=== PATIENT | male | born 1955 | race Caucasian/White ===

== ENCOUNTER → 2017-02-09 | Outpatient (CLI) | payer MEDICARE ==
[~2017-02-09] MED LIST: ACET500T33 PO; CALC600T PO; CHOL100013 PO; COLE1TAB2 PO; CONTRAST GIVEN MC PRN; HYDR-2680 PO; IOHEXOL 350 MG/ML 100 ML VIAL. IV ONE; OMEP40CA2 PO
--- NOTE | 2017-02-09 12:24 | CARD ---
APPROVED REPORT EXAM: Two-dimensional and M-mode echocardiogram with Doppler and color Doppler. Other Information Quality : Average Rhythm : NSR INDICATION Thoracic aortic aneurysm 2D DIMENSIONS RVDd3.2 (2.9-3.5cm)Left Atrium(2D)2.4 (1.6-4.0cm) IVSd0.8 (0.7-1.1cm)Aortic Root(2D)3.4 (2.0-3.7cm) LVDd4.2 (3.9-5.9cm)LVOT Diameter2.0 (1.8-2.4cm) PWd0.8 (0.7-1.1cm)LVDs2.8 (2.5-4.0cm) FS (%) 34.2 %SV49.6 ml LVEF(%)63.7 (>50%) Aortic Valve AoV Peak Filemon.83.1cm/sAoV VTI14.9cm AO Peak GR.2.8mmHgLVOT Peak Fileomn.73.5cm/s LVOT VTI 14.97cmAO Mean GR.1mmHg YOUNG (VMAX)2.47up5BMA (VTI)3.15cm2 Mitral Valve MV E Zwnkqbik30.0cm/sMV DECEL [id number] MV A Iurnyyse30.9cm/sMV E Mean Gr.1mmHg MV DSO51sbW/A Ratio0.9 MV A Sbciiwmj779ncHDG (PHT)2.73cm2 TDI E/Lateral E'4.7E/Medial E'6.0 Tricuspid Valve TR P. Thlvebrf981zl/sRAP WWBXQOQH6kbPw TR Peak Gr.88jqHiOFVX66vhOo Pulmonary Vein S1 Knzakydt96.0cm/sD2 Xtqoacog21.9cm/s LEFT VENTRICLE The left ventricle is normal size. There is normal left ventricular wall thickness. Left ventricle sy stolic function is low normal. The Ejection Fraction is 50-55%. There is normal LV segmental wall mot ion. The left ventricular diastolic function and filling is normal for age. There is no ventricular s eptal defect visualized. RIGHT VENTRICLE The right ventricle is normal size. The right ventricular systolic function is normal. ATRIA The left atrium size is normal. The right atrium size is normal. The interatrial septum is intact wit h no evidence for an atrial septal defect or patent foramen ovale as noted on 2-D or Doppler imaging. AORTIC VALVE The aortic valve is normal in structure and function. The aortic valve is trileaflet. Doppler and Col or Flow revealed no significant aortic regurgitation. There is no significant aortic valvular stenosi s. MITRAL VALVE The mitral valve is normal in structure and function. There is no mitral valve stenosis. Doppler and Color Flow revealed trace mitral regurgitation. TRICUSPID VALVE The tricuspid valve is normal in structure and function. Doppler and Color Flow revealed mild tricusp id regurgitation. The PA pressure was estimated at 37 mmHg. There is no tricuspid valve stenosis. PULMONIC VALVE The pulmonic valve is not well visualized. Doppler and Color Flow revealed no pulmonic valvular regur gitation. There is no pulmonic valvular stenosis. GREAT VESSELS The aortic root is normal in size. The ascending aorta is normal in size. Normal pulmonary venous ronaldo w (Doppler). The IVC is normal in size and collapses >50% with inspiration. PERICARDIAL EFFUSION There is no evidence of significant pericardial effusion. Critical Notification Critical Value: No <Conclusion> Left ventricle systolic function is low normal. The Ejection Fraction is 50-55%. There is normal LV segmental wall motion. Doppler and Color Flow revealed mild tricuspid regurgitation. The PA pressure was estimated at 37 mmH g.
--- NOTE | 2017-02-09 12:34 | RAD ---
Indication thoracic aneurysm. Contrast imaging through the chest was performed. The images were obtained during the arterial phase. MIP images were generated and reviewed as well as volume rendered images. Approximately 75 cc of Omnipaque [address] imaging of the chest is available. No definite aneurysm is seen. The ascending thoracic aorta, throughout its course, has a diameter less than 4 cm. No acute finding is seen associated with the thoracic aorta. There is no significant hilar or mediastinal adenopathy. There is a calcified granuloma in the right upper lobe. There is some suggested slight reticulonodular prominence in the right upper lobe. Some of this may be chronic. Infectious etiology is not entirely excluded. Clinical correlation advised. A definite consolidated pneumonia is not seen. No dominant soft tissue mass is seen in either lung. Imaging through the upper abdomen is unremarkable IMPRESSION: No acute finding in the chest. The thoracic aorta, throughout its course, has a diameter under 4 cm. Suspect slight reticulonodular prominence in the right upper lobe. Clinical correlation advised PQRS Compliance Statement: One or more of the following individualized dose reduction techniques were utilized for this examination: 1. Automated exposure control 2. Adjustment of the mA and/or kV according to patient size 3. Use of iterative reconstruction technique
== END | disposition home or self-care (01) ==
LOC: CT 10:29
PROVIDERS: ATTEND Internal Medicine Cardiovascular Disease
DX: I71.2 Thoracic aortic aneurysm, without rupture (principal); J84.10 Pulmonary fibrosis, unspecified; I07.1 Rheumatic tricuspid insufficiency
CPT/HCPCS: 71260; 93306

== ENCOUNTER → 2018-02-14 | Outpatient (CLI) | payer MEDICARE ==
[~2018-02-14] MED LIST changes: -CONTRAST GIVEN MC PRN; +CONTRAST GIVEN. MC PRN; +IOHEXOL 300 MG/ML 100ML VIAL. IV ONE; -IOHEXOL 350 MG/ML 100 ML VIAL. IV ONE
--- NOTE | 2018-02-14 10:06 | RAD ---
CTA OF THE CHEST WITH AND WITHOUT CONTRAST Clinical indications: Thoracic aortic aneurysm. Follow-up study. Technique: Noncontrast axial localizer was performed. After IV infusion of 90 cc of Omnipaque 300, helical CT scanning of the chest was performed using the CT thoracic aortic protocol. Coronal and sagittal MIP reconstructions were generated. PQRS compliance Statement One or more of the following individualized dose reduction techniques were utilized for this study: 1. Automated exposure control 2. Adjustment of the mA and/or kV according to patient size 3. Use of iterative reconstruction technique Comparison: February 09, 2017. Findings: There is ectasia of the ascending aorta measuring 4.0 cm in greatest dimension. This is unchanged. No intimal flap or dissection is seen. The heart size is normal and no pericardial effusion is seen. No enlarging thoracic lymphadenopathy is evident. No pleural effusion or pneumothorax is seen. Calcified granuloma of the anterior segment of the right upper lobe is again evident. No new lung nodule is evident. No new lung infiltrate is seen. The proximal bronchial tree is patent. No osteolytic process is evident. No adrenal mass is seen. IMPRESSION: Stable ectasia of the ascending aorta. No dissection is evident. No acute lung infiltrate. Electronically signed by: Spencer Alexander MD (02/14/2018 10:02 AM) [facility]
== END | disposition home or self-care (01) ==
LOC: CT 09:09
PROVIDERS: ATTEND Internal Medicine Cardiovascular Disease
DX: I77.810 Thoracic aortic ectasia (principal)
CPT/HCPCS: 71275; Q9967

== ENCOUNTER → 2019-03-08 | Outpatient (CLI) | payer MEDICARE ==
[~2019-03-08] MED LIST changes: -CONTRAST GIVEN. MC PRN; -IOHEXOL 300 MG/ML 100ML VIAL. IV ONE; +IOHEXOL 350 MG/ML 100 ML VIAL. IV ONE
--- NOTE | 2019-03-08 09:04 | RAD ---
EXAM: CT angiogram chest CLINICAL HISTORY: THORACIC AORTIC ANEURYSM W/O RUPTURE COMPARISON: 02/14/18, 02/09/2017 TECHNIQUE: CT of the chest following the administration of intravenous contrast during the aortic arterial phase. Axial, coronal and sagittal reformatted images were generated including MIP images. ---PQRS compliance statement - One or more of the following individualized dose reduction techniques were utilized for this study: 1. Automated exposure control 2. Adjustment of the mA and/or kV according to patient size 3. Use of iterative reconstruction technique--- FINDINGS: CHEST: Heart is not enlarged. No pericardial effusion. Coronary artery calcifications are seen. At the level of the right pulmonary artery, the ascending aorta measures 3.9 cm, essentially stable, previously 4 cm. Remainder of the visualized thoracic aorta is normal in caliber. Bovine configuration of the aortic arch. A few mildly prominent mediastinal and hilar lymph nodes are seen, in general grossly stable. No axillary lymphadenopathy. Linear reticular opacities in the lower lobes likely scarring/atelectasis. A <4 mm left fissural lung nodule is stable. No suspicious lung nodule or mass is seen. Stable calcified granuloma in the right upper lobe. Visualized Upper abdomen: Unremarkable Bones: Stable IMPRESSION: Dilation of the ascending aorta, stable to 02/14/2018. Otherwise stable examination. Electronically signed by: Brett Quintana MD (03/08/2019 9:01 AM) [facility]
== END ==
LOC: CT 07:57
PROVIDERS: ATTEND Internal Medicine Cardiovascular Disease
DX: R91.1 Solitary pulmonary nodule (principal); I71.2 Thoracic aortic aneurysm, without rupture; J84.10 Pulmonary fibrosis, unspecified
CPT/HCPCS: 71275; Q9967

== ENCOUNTER → 2019-03-28 | Outpatient (CLI) | payer MEDICARE ==
[~2019-03-28] MED LIST changes: -IOHEXOL 350 MG/ML 100 ML VIAL. IV ONE
--- NOTE | 2019-03-28 12:52 | CARD ---
MR#: [id number] Date of Study: 03/28/2019 Ordering Physician: SILVINO CAGE, Referring Physician: SILVINO CAGE, Tech: Moni Plasencia APPROVED REPORT EXAM: Two-dimensional and M-mode echocardiogram with Doppler and color Doppler. Other Information Quality : AverageHR: 72bpm INDICATION Aorta aneurysm 2D DIMENSIONS RVDd3.1 (2.9-3.5cm)Left Atrium(2D)2.9 (1.6-4.0cm) IVSd1.1 (0.7-1.1cm)Aortic Root(2D)3.4 (2.0-3.7cm) LVDd4.4 (3.9-5.9cm)LVOT Diameter2.6 (1.8-2.4cm) PWd0.8 (0.7-1.1cm)LVDs3.1 (2.5-4.0cm) FS (%) 29.9 %SV49.6 ml LVEF(%)57.3 (>50%) Aortic Valve AoV Peak Filemon.111.6cm/sAoV VTI22.1cm AO Peak GR.5.0mmHgLVOT Peak Filemon.90.8cm/s AO Mean GR.3mmHgAVA (VMAX)4.37cm2 Mitral Valve MV E Tzkhvtok23.5cm/sMV DECEL SCVS103cu MV A Icecpnhn23.0cm/sE/A Ratio1.0 Pulmonary Valve PV Peak Bvpoqnxp92.4cm/s Tricuspid Valve TR P. Knozqsnh367cv/sRAP KQBYKOKY4ndVc TR Peak Gr.58wzIfOKRT65sxRi Pulmonary Vein S1 Gyjkifjq18.2cm/sD2 Hwleqbjz33.0cm/s PVa pkqavydh934ggsq LEFT VENTRICLE The left ventricle is normal size. There is mild concentric left ventricular hypertrophy. The left ve ntricular systolic function is normal. The Ejection Fraction is 55-60%. There is normal LV segmental wall motion. RIGHT VENTRICLE The right ventricle is normal size. There is normal right ventricular wall thickness. The right ventr icular systolic function is normal. ATRIA The left atrium size is normal. The right atrium size is normal. The interatrial septum is intact wit h no evidence for an atrial septal defect or patent foramen ovale as noted on 2-D or Doppler imaging. AORTIC VALVE The aortic valve is normal in structure and function. Doppler and Color Flow revealed no significant aortic regurgitation. There is no significant aortic valvular stenosis. MITRAL VALVE The mitral valve is normal in structure and function. There is no evidence of mitral valve prolapse. There is no mitral valve stenosis. Doppler and Color Flow revealed no mitral valve regurgitation note d. TRICUSPID VALVE The tricuspid valve is normal in structure and function. Doppler and Color Flow revealed trace tricus pid regurgitation with an estimated PAP of 25 mmHg. There is no tricuspid valve prolapse or vegetatio n. There is no tricuspid valve stenosis. PULMONIC VALVE The pulmonary valve is normal in structure and function. Doppler and Color Flow revealed no pulmonic valvular regurgitation. GREAT VESSELS The aortic root is normal in size. The IVC is normal in size and collapses >50% with inspiration. PERICARDIAL EFFUSION There is no evidence of significant pericardial effusion. Critical Notification Critical Value: No <Conclusion> The left ventricular systolic function is normal. The Ejection Fraction is 55-60%. There is normal LV segmental wall motion. Trace tricuspid regurgitation with an estimated PAP of 25 mmHg. There is no evidence of significant pericardial effusion. Signed by : Silvino Cage, Electronically Approved : 03/28/2019 12:51:22
== END | disposition home or self-care (01) ==
LOC: ECHO 08:58
PROVIDERS: ATTEND Internal Medicine Cardiovascular Disease
DX: I51.7 Cardiomegaly (principal); I72.1 Aneurysm of artery of upper extremity
CPT/HCPCS: 93306

== ENCOUNTER → 2019-09-21 | Outpatient (CLI) | payer MEDICARE ==
[~2019-09-21] MED LIST changes: +CONTRAST GIVEN. MC PRN; +IOHEXOL 350 MG/ML 100 ML VIAL. IV ONE
--- NOTE | 2019-09-21 11:41 | RAD ---
EXAM: CT Pulmonary Angiogram INDICATION: Shortness of air. Rule out P/E. TECHNIQUE: Multi-detector row images were acquired from the thoracic inlet through the upper abdomen with the use of IV contrast. Sagittal and coronal images were acquired from the transaxial data. MIP images of the pulmonary arteries were obtained. All CT scans performed at this facility utilize dose optimization techniques as appropriate to the exam, including the following: Automated exposure control and adjustment of the mA and/or KV according to patient size (this includes techniques or standardized protocols for targeted exams where dose is indication/reason for exam). IV CONTRAST: Administered COMPARISON: 02/14/2018 CT chest with IV contrast FINDINGS: PULMONARY ARTERIES: The pulmonary arteries are moderately enlarged but no filling defects are present to suggest pulmonary emboli. CARDIOVASCULAR: Unremarkable Aorta is normal caliber. MEDIASTINUM & MARIANA: Mild right hilar adenopathy with lymph node measuring 9 mm in short axis diameter on image 72 of axial series 3. LUNGS: Lungs show interval development of diffuse bilateral groundglass attenuation without confluent consolidation. Stable right upper lobe 9 mm hamartoma. PLEURAL SPACE: No pleural effusions or pneumothorax. OSSEOUS & SOFT TISSUE: Unremarkable ABDOMEN: The visualized portions of the upper abdomen are unremarkable. IMPRESSION: 1. No pulmonary emboli. 2. Diffuse groundglass attenuation in the lungs bilaterally, new from a year and a half ago. This could reflect atypical pneumonia in the appropriate clinical context. FOR INTERNAL CODING PURPOSES Critical result: Findings discussed with JORGE LUIS WONG at 09/21/2019 11:36 A M. RESULT CODE: (C) Electronically signed by: Deanna Marin MD (09/21/2019 11:38 AM) [id number]
== END | disposition home or self-care (01) ==
LOC: CT 10:21
PROVIDERS: ATTEND Family Medicine
DX: R59.0 Localized enlarged lymph nodes (principal); I77.89 Other specified disorders of arteries and arterioles
CPT/HCPCS: 71275; Q9967

== ENCOUNTER → 2020-03-13 | Outpatient (CLI) | payer MEDICARE ==
[~2020-03-13] MED LIST changes: -CONTRAST GIVEN. MC PRN
--- NOTE | 2020-03-13 10:19 | RAD ---
EXAM: CT Chest angiogram with IV contrast INDICATION: Reason: THORACIC AORTIC ANEURYSM / Spl. Instructions: / History: TECHNIQUE: Multi-detector row CT images were acquired from the thoracic inlet through the upper abdomen with the use of IV contrast. Sagittal and coronal images were acquired from the transaxial data. All CT scans performed at this facility utilize dose optimization techniques as appropriate to the exam, including the following: Automated exposure control and adjustment of the mA and/or KV according to patient size (this includes techniques or standardized protocols for targeted exams where dose is indication/reason for exam). IV CONTRAST: Administered COMPARISON: CT angiogram chest of 09/21/2019 FINDINGS: CARDIOVASCULAR: Stable upper normal/borderline ectatic ascending thoracic aorta measuring 3.9 cm outer wall diameter in the mid ascending portion. This is previously been measured at 4 cm. Study is not gated so accurate measurement of the aortic root is limited due to pulsation artifact. At the mid arch, thoracic aorta measures 3.0 cm. There is a two-vessel aortic arch with no flow-limiting stenosis, occlusion or dissection in the thoracic aorta noted. Proximal descending thoracic aorta measures 2.8 cm. Mid descending thoracic aorta measures 2.5 cm. Distal thoracic aorta at the hiatus measures 2.3 cm diameter. MEDIASTINUM & MARIANA: Multiple prominent mediastinal lymph nodes are present including a 7 mm short axis right paratracheal lymph node, a 10 mm subcarinal lymph node, 8 mm right hilar lymph node and ill-defined left hilar soft tissue thickening in the left main pulmonary artery without narrowing, similar to prior. The right hilar lymph node has decreased slightly in size in the interval. LUNGS: Lungs again show patchy groundglass attenuation similar to the previous examination with scattered areas of air-trapping ileum mosaic attenuation most conspicuous in the lower lobes. Stable appearance to an anterior right upper lobe 10 mm concentrically calcified nodule compatible with a hamartoma. PLEURAL SPACE: No pleural effusions or pneumothorax. OSSEOUS & SOFT TISSUE: Unremarkable ABDOMEN: The visualized portions of the upper abdomen are unremarkable. IMPRESSION: 1. Stable upper normal caliber to the ascending thoracic aorta measuring 3.9 cm with no evidence of dissection or flow limiting stenosis. 2. Persistent patchy groundglass attenuation to the lungs bilaterally with likely reactive mediastinal and hilar adenopathy as described. Electronically signed by: Deanna Marin MD (03/13/2020 10:16 AM) [place] [id number]
== END ==
LOC: CT 08:51
PROVIDERS: ATTEND Internal Medicine Cardiovascular Disease
DX: R91.1 Solitary pulmonary nodule (principal); I77.810 Thoracic aortic ectasia; Q85.8 Other phakomatoses, not elsewhere classified
CPT/HCPCS: 71275; Q9967

== ENCOUNTER → 2021-03-12 | Outpatient (CLI) | payer MEDICARE ==
--- NOTE | 2021-03-12 11:39 | RAD ---
EXAMINATION: CTA CHEST CLINICAL HISTORY: Thoracic aortic aneurysm Technique: Spiral CT acquisition of the chest from the thoracic inlet to the upper abdomen following IV contrast with coronal and sagittal reformatted images also provided for review. 3D maximum intensi ty projection images also performed. CT Dose Reduction Employed: One or more of the following individualized dose reduction techniques wer e utilized for this examination: 1. Automated exposure control 2. Adjustment of the mA and/or kV ac cording to patient size 3. Use of iterative reconstruction technique. Comparison: 03/13/2020 FINDINGS: Lung Parenchyma, Pleura, and Airways: Diffuse scattered groundglass attenuation, similar to prior topher dy, possibly related to air trapping. Minimal curvilinear subsegmental atelectasis and/or scarring in the right middle lobe and lingula. Unchanged old calcified granuloma in the right upper lobe. No ple ural effusion. Central airways patent. Lower Neck, Lymph Nodes, and Mediastinum: Visualized thyroid gland within normal limits. Multiple pro minent but nonenlarged mediastinal lymph nodes, similar to prior study. Heart, Pericardium, and Thoracic Vessels: Cardiac chambers normal in size. No pericardial effusion. M inimal coronary atherosclerotic calcification, incompletely evaluated. Borderline aneurysmal dilation of the ascending thoracic aorta measuring up to 3.9 x 3.8 cm, previously 3.9 x 3.9 cm when measured in similar planes at the mid descending aorta. Normal variant common origin of the brachiocephalic ar chayito and left common carotid artery from the aortic arch. Minimal aortic atherosclerotic calcificatio n at the arch. Bones and Soft Tissues: Multilevel degenerative changes in the thoracic spine. Upper Abdomen: Partially visualized upper abdomen unremarkable. IMPRESSION: Essentially unchanged borderline aneurysmal dilation of the ascending thoracic aorta measuring up to 3.9 cm. Additional nonacute findings as described, similar to prior study. Electronically signed by: Manjit Huff DO (03/12/2021 11:37 AM) [facility]
--- NOTE | 2021-03-12 16:42 | CARD ---
MR#: [id number] Date of Study: 03/12/2021 Ordering Physician: SILVINO CAGE, Referring Physician: Merly OQUENDO: Dajuan Shin [facility] APPROVED REPORT EXAM: Two-dimensional and M-mode echocardiogram with Doppler and color Doppler. Other Information Quality : AverageHR: 74bpm Rhythm : NSR INDICATION Dilated Thoracic Aorta 2D DIMENSIONS Left Atrium(2D)3.1 (1.6-4.0cm)IVSd1.0 (0.7-1.1cm) Aortic Root(2D)3.7 (2.0-3.7cm)LVDd4.2 (3.9-5.9cm) LVOT Diameter2.4 (1.8-2.4cm)PWd1.0 (0.7-1.1cm) LVDs2.9 (2.5-4.0cm)FS (%) 31.2 % SV45.8 mlLVEF(%)59.4 (>50%) Aortic Valve AoV Peak Filemon.99.1cm/sAoV VTI18.8cm AO Peak GR.3.9mmHgLVOT Peak Filemon.100.2cm/s AO Mean GR.2mmHgAVA (VMAX)4.50cm2 Mitral Valve MV E Papuhbwu22.7cm/sMV DECEL PTRR708dv MV A Trzqerah41.0cm/sE/A Ratio0.9 Pulmonary Valve PV Peak Jeinbevi64.9cm/s Tricuspid Valve TR P. Oiikpujp688zu/sTR Peak Gr.25mmHg Pulmonary Vein S1 Thickcte14.1cm/sD2 Vhrddbvt74.4cm/s LEFT VENTRICLE The left ventricle is normal size. There is normal left ventricular wall thickness. The left ventricu lar systolic function is normal. The ejection fraction is 55-60%. There is normal LV segmental wall m otion. Transmitral Doppler flow pattern is Grade I-abnormal relaxation pattern. No left ventricle thr ombus noted on this study. There is no ventricular septal defect visualized. There is no left ventric ular aneurysm. There is no mass noted in the left ventricle. RIGHT VENTRICLE The right ventricle is normal size. There is normal right ventricular wall thickness. The right ventr icular systolic function is normal. ATRIA The left atrium size is normal. The right atrium size is normal. The interatrial septum is intact wit h no evidence for an atrial septal defect or patent foramen ovale as noted on 2-D or Doppler imaging. AORTIC VALVE The aortic valve is mildly sclerotic. The aortic valve is tri-cuspid. Doppler and Color Flow revealed no significant aortic regurgitation. There is no significant aortic valvular stenosis. There is no a ortic valvular vegetation. MITRAL VALVE The mitral valve is normal in structure and function. There is no evidence of mitral valve prolapse. There is no mitral valve stenosis. Doppler and Color Flow revealed no mitral valve regurgitation note d. TRICUSPID VALVE The tricuspid valve is normal in structure and function. Doppler and Color Flow revealed trace tricus pid regurgitation. There is no tricuspid valve prolapse or vegetation. There is no tricuspid valve st enosis. PULMONIC VALVE The pulmonary valve is normal in structure and function. Doppler and Color Flow revealed no pulmonic valvular regurgitation. There is no pulmonic valvular stenosis. GREAT VESSELS The aortic root is normal in size. The ascending aorta is mildly dilated at 4.0 cm. The pulmonary art batsheva is normal. The IVC is normal in size and collapses >50% with inspiration. PERICARDIAL EFFUSION There is no pleural effusion. There is no evidence of significant pericardial effusion. Critical Notification Critical Value: No <Conclusion> The left ventricular systolic function is normal. The ejection fraction is 55-60%. There is normal LV segmental wall motion. Transmitral Doppler flow pattern is Grade I-abnormal relaxation pattern. Trace tricuspid regurgitation. The ascending aorta is mildly dilated at 4.0 cm. There is no evidence of significant pericardial effusion. Signed by : Silvino Cage, Electronically Approved : 03/12/2021 16:42:31
== END ==
LOC: CT 09:09
PROVIDERS: ATTEND Internal Medicine Cardiovascular Disease
DX: I35.8 Other nonrheumatic aortic valve disorders (principal); I71.2 Thoracic aortic aneurysm, without rupture
CPT/HCPCS: 71275; 93306; Q9967